=== PATIENT | female | born 1955 | race Caucasian/White ===

== ENCOUNTER 2017-03-20 06:33 | Day surgery (SDC) | payer BC, OTHER ==
[2017-03-20] VITALS (21 sets, daily range): BP systolic 102–157; BP diastolic 44–65
[~2017-03-20] VITALS: Ht 149.9 cm; Wt 61.3 kg
[2017-03-20] MEDS ORDERED: BISO1TAB7 PO (07:07)
[2017-03-20] MEDS ORDERED: AMLO1CAP9 PO (07:07)
[2017-03-20 07:22] LABS: BASOPHILS % (AUTO) 0.2 % (0-1); EOSINOPHILS # (AUTO) 0.2 X10'3 (0-0.9); EOSINOPHILS % (AUTO) 4.1 % (0-6); HEMATOCRIT 39.5 % (35.0-45.0); HEMOGLOBIN 13.6 g/dl (12.0-16.0); LYMPHOCYTES # (AUTO) 1.1 X10'3 (1.1-4.8); LYMPHOCYTES % (AUTO) 23.2 % (21-51); MEAN CORPUSCULAR HEMOGLOBIN 31.1 PG (27.0-31.0); MEAN CORPUSCULAR HGB CONC 34.4 % (33.0-36.5); MEAN CORPUSCULAR VOLUME 90.3 FL (78-98); MEAN PLATELET VOLUME 7.8 FL (7.4-10.4); MONOCYTES # (AUTO) 0.5 X10'3 (0-0.9); MONOCYTES % (AUTO) 9.5 % (2-12); PLATELET COUNT 275 X10'3 (140-440); RED BLOOD COUNT 4.37 X10'6 (4.20-5.60); RED CELL DISTRIBUTION WIDTH 14.2 % (11.5-14.5); WHITE BLOOD COUNT 4.8 X10'3 (4.5-11.0)
[2017-03-20] MEDS ORDERED: normal saline 1000ml 1,000 ML IV PRN (07:25)
[2017-03-20] MEDS ORDERED: guaiFENesin/codeine phos 10ml UD oral syrup PO ONE (08:20)
[2017-03-20] MEDS ORDERED: fentaNYL/PF 50MCG/1 ML 2ML syringe ONE (08:47)
[2017-03-20] MEDS ORDERED: midazolam 2 mg/2 ml injection ONE (08:47)
[2017-03-20] MEDS ORDERED: fentaNYL/PF 50MCG/1 ML 2ML syringe IV PRN (08:50)
[2017-03-20] MEDS ORDERED: LIDOcaine 1%/PF (10mg/ml) 5ml vial SQ ONE (08:50)
[2017-03-20] MEDS ORDERED: midazolam 2 mg/2 ml injection IV PRN (08:50)
[2017-03-20] MEDS ORDERED: sodium chloride 0.45% 1,000 ML IV SCH (09:36)
[2017-03-20] MEDS ORDERED: HYDROcodone/acetaminophen 5mg/325mg tablet PO PRN ×2 (09:40)
== END 2017-03-20 12:50 | disposition home or self-care (01) ==
LOC: SSTAY O 06:33
PROVIDERS: ATTEND Radiology Vascular & Interventional Radiology
DX: C34.31 Malignant neoplasm of lower lobe, right bronchus or lung (principal); I10 Essential (primary) hypertension; Z87.891 Personal history of nicotine dependence; Z90.710 Acquired absence of both cervix and uterus; Z79.899 Other long term (current) drug therapy
CPT/HCPCS: 32405; 36415; 71045; 77012; 85025; J2250; J3010; J7030; 99152; 99153

== ENCOUNTER 2017-11-16 07:44 | Day surgery (SDC) | payer OTHER ==
[~2017-11-16] VITALS: Ht 152.4 cm; Wt 49.2 kg
[~2017-11-16 07:44] MED LIST: AMLO1CAP9 PO; BISO1TAB7 PO
[2017-11-16] MEDS ORDERED: normal saline 1000ml 1,000 ML IV PRN (08:00)
[2017-11-16 08:14] VITALS: BP 108/59
[2017-11-16] MEDS ORDERED: FEXO-25 PO (08:28)
[2017-11-16] MEDS ORDERED: GUAI1TBM19 PO (08:28)
[2017-11-16] MEDS ORDERED: OMEG-42 PO (08:28)
[2017-11-16] MEDS ORDERED: VITAMIN B IM (08:28)
[2017-11-16] MEDS ORDERED: POTA-82 PO (08:28)
[2017-11-16] MEDS ORDERED: MULT-38 PO (08:28)
== END 2017-11-16 08:50 | disposition home or self-care (01) ==
LOC: SSTAY O 07:44
PROVIDERS: ATTEND Radiology Diagnostic Radiology
DX: R91.8 Other nonspecific abnormal finding of lung field (principal); Z53.8 Procedure and treatment not carried out for other reasons; I10 Essential (primary) hypertension; Z90.710 Acquired absence of both cervix and uterus; Z72.89 Other problems related to lifestyle; Z85.118 Personal history of other malignant neoplasm of bronchus and lung; Z87.891 Personal history of nicotine dependence; Z98.890 Other specified postprocedural states; Z79.899 Other long term (current) drug therapy
CPT/HCPCS: J7030

== ENCOUNTER 2017-12-20 08:25 | Day surgery (SDC) | payer OTHER ==
[2017-12-20] VITALS (9 sets, daily range): BP systolic 95–124; BP diastolic 55–74
[~2017-12-20 08:25] MED LIST changes: +FEXO-25 PO; +GUAI1TBM19 PO; +MULT-38 PO; +OMEG-42 PO; +POTA-82 PO; +VITAMIN B IM
[2017-12-20] MEDS ORDERED: NAPR220T67 PO (09:20)
[2017-12-20] MEDS ORDERED: MORP30CA16 PO (09:20)
[2017-12-20] MEDS ORDERED: LIDOcaine 1% (10mg/ml)w/preservative injection 20ml MDV SQ ONE (10:00)
== END 2017-12-20 12:30 | disposition home or self-care (01) ==
LOC: SSTAY O 08:25
PROVIDERS: ATTEND Radiology Diagnostic Radiology
DX: J90 Pleural effusion, not elsewhere classified (principal); I10 Essential (primary) hypertension; I34.1 Nonrheumatic mitral (valve) prolapse; Z87.891 Personal history of nicotine dependence; Z92.21 Personal history of antineoplastic chemotherapy; Z92.3 Personal history of irradiation; Z79.891 Long term (current) use of opiate analgesic; Z85.3 Personal history of malignant neoplasm of breast; Z85.118 Personal history of other malignant neoplasm of bronchus and lung; Z90.710 Acquired absence of both cervix and uterus; Z98.890 Other specified postprocedural states; Z79.899 Other long term (current) drug therapy
CPT/HCPCS: 32555; 71045; J2001; 49083